=== PATIENT | male | born 1975 | race Caucasian/White ===

== ENCOUNTER 2017-07-08 23:07 | Emergency (ER) | payer MEDICAID, OTHER ==
[~2017-07-08] VITALS: Ht 172.7 cm; Wt 88.5 kg
--- NOTE | 2017-07-08 23:15 | NUR ---
TO BED 7 A 41 YO MALE PT BIBSELF C/O EPIGASTIC PAIN X 2 WEEKS. - N/V. VSS. NAD NOTED. SKIN WARM AND DRY. GOWNED. COMFORT MEASURES RENDERED.
--- NOTE | 2017-07-08 23:52 | NUR ---
DR SCHMITT AT BEDSIDE TO EVALUATE PATIENT.
--- NOTE | 2017-07-09 00:06 | NUR ---
Patient discharged to home in stable condition. Written and verbal after care instructions given. Patient verbalizes understanding of instruction. Patient is ambulatory with steady gait, accompanied by family. vss. nad noted. no further complaints.
[2017-07-09 00:09] VITALS: BP 143/78
== END 2017-07-09 00:18 | disposition home or self-care (01) ==
LOC: ER 23:08
DX: F41.9 Anxiety disorder, unspecified (principal)
CPT/HCPCS: 99284; A4606; Z7610

== ENCOUNTER 2021-05-04 17:34 | Emergency (ER) | payer MEDICAID, OTHER ==
[~2021-05-04] VITALS: Ht 167.6 cm; Wt 83.9 kg
[2021-05-04 17:53] VITALS: BP 140/88
--- NOTE | 2021-05-04 18:01 | NUR ---
BIBS FOR SUBCONJUNCTIVAL HEMORRHAGE THAT STARTED YESTERDAY,R EYE. DENIES CHANGE IN VISION. WILL CONTINUE TO MONITOR THE PATIENT.
[2021-05-04] MEDS ORDERED: FLUORESCEIN SODIUM OPHTH 1 EA STRIP ONE (19:17)
--- NOTE | 2021-05-04 19:40 | NUR ---
Patient discharged to home in stable condition. Written and verbal after care instructions given. Patient verbalizes understanding of instruction. Pt ambulatory with a steady gait
== END 2021-05-04 19:40 | disposition home or self-care (01) ==
LOC: ER 17:50
DX: H11.31 Conjunctival hemorrhage, right eye (principal); F41.9 Anxiety disorder, unspecified; Z98.890 Other specified postprocedural states

== ENCOUNTER 2022-06-10 18:09 | Emergency (ER) | payer MEDICAID, OTHER ==
[~2022-06-10] VITALS: Ht 167.6 cm; Wt 86.2 kg
--- NOTE | 2022-06-10 20:41 | NUR ---
BLOOD COLLECTED AND SENT TO LAB. INSERTED IV RAC #20G BUT PT REFUSED AND D/C IV LINE
--- NOTE | 2022-06-10 20:41 | NUR ---
CLOTH WEAVER AT PT'S BEDSIDE
[2022-06-10 21:05] LABS: BASOPHILS % (AUTO) 0.4 % (0.0-2.0); EOSINOPHILS % (AUTO) 0.7 % (0.0-6.0); HEMATOCRIT 49 % (39-51); HEMOGLOBIN 16.6 g/dL (13.5-17.5); LYMPHOCYTES # (AUTO) 2.5 K/uL (0.8-4.8); LYMPHOCYTES % (AUTO) 28.3 % (20.0-44.0); MEAN CORPUSCULAR HGB CONC 34 g/dl (31.0-36.0); MEAN CORPUSCULAR VOLUME 90 fL (80-96); MONOCYTES # (AUTO) 0.7 K/uL (0.1-1.30); NEUTROPHILS # (AUTO) 5.5 K/uL (1.8-8.9); NEUTROPHILS % (AUTO) 62.6 % (43.0-81.0); PLATELET COUNT (AUTO) 259 K/uL (150-450); RED BLOOD CELL COUNT(AUTO) 5.45 MIL/uL (4.5-6.0); WHITE BLOOD COUNT (AUTO) 8.9 K/uL (4.3-11.0)
--- NOTE | 2022-06-10 21:15 | NUR ---
1830 C/O UPPER LEFT BACK PAIN AFTER LIFTING BOX YESTERDAY. PT A/OX 4. TOLERATING R/A WELL WITH NO RESP DISTRESS, SAFETY MEASURES IN PLACE.
--- NOTE | 2022-06-10 22:04 | NUR ---
APPLICATION COORDINATOR AT PT'S BEDSIDE
[2022-06-10 22:07] LABS: CALCIUM, SERUM 8.8 mg/dL (8.5-10.1); CARBON DIOXIDE 28 mmol/L (21-32); CHLORIDE 103 mmol/L (98-107); GLUCOSE 89 mg/dL (74-106); POTASSIUM 3.8 mmol/L (3.5-5.1); SODIUM SERUM 138 mmol/L (136-145); UREA NITROGEN, BLOOD 14 mg/dL (7-18)
[2022-06-10 23:28] VITALS: BP 138/90
--- NOTE | 2022-06-10 23:28 | NUR ---
Patient discharged to home in stable condition. Written and verbal after care instructions given. Patient verbalizes understanding of instruction.
== END 2022-06-10 23:42 | disposition home or self-care (01) ==
LOC: ER 18:12
DX: R07.89 Other chest pain (principal); M54.6 Pain in thoracic spine; F41.9 Anxiety disorder, unspecified; Z98.890 Other specified postprocedural states
CPT/HCPCS: 36415; 71045-TC; 80048-TC; 84484-TC; 85025-TC; 87081-TC